=== PATIENT | female | born 1960 | race Caucasian/White ===

== ENCOUNTER → 2017-10-25 | Outpatient (CLI) | payer OTHER ==
[~2017-10-25] MED LIST: LEVSOD50 PO; PSORIASIS MED
== END | disposition home or self-care (01) ==
LOC: LAB 13:43 → LAB SHORT 13:43
PROVIDERS: Nurse Practitioner
DX: Z01.419 Encounter for gynecological examination (general) (routine) without abnormal findings (principal)
CPT/HCPCS: G0145

== ENCOUNTER 2019-08-06 07:14 | Day surgery (SDC) | payer OTHER ==
[~2019-08-06] VITALS: Ht 172.7 cm; Wt 80.1 kg
[~2019-08-06 07:14] MED LIST changes: +Colace100 MG PO; +GABA100 PO; +SUMA25 PO; +Synthroid137 MCG PO
--- NOTE | 2019-08-06 09:32 | NUR ---
08/06/19 0932 Jennifer Bennett PT DIFFICULT TO WAKE. VSS. DISCHARGE INSTRUCTIONS WERE REVIEWED WITH PT ONCE SHE WAS AWAKE AND THEN WITH HER SPOUSE WHEN HE ARRIVED TO PICK HER UP. HANDOUT FOR DIVERTICULOSIS PROVIDED PER DR. LOREDO.
== END 2019-08-06 09:15 | disposition home or self-care (01) ==
LOC: ORSCSDS 07:14
PROVIDERS: Internal Medicine Gastroenterology
PROC: 0DJD8ZZ Inspection of Lower Intestinal Tract, Via Natural or Artificial Opening Endoscopic (ICD-10-PCS; principal; 2019-08-06 08:30)
DX: Z12.11 Encounter for screening for malignant neoplasm of colon (principal); K57.30 Diverticulosis of large intestine without perforation or abscess without bleeding; K64.4 Residual hemorrhoidal skin tags; K64.8 Other hemorrhoids; E03.9 Hypothyroidism, unspecified; F17.210 Nicotine dependence, cigarettes, uncomplicated; Z79.899 Other long term (current) drug therapy
CPT/HCPCS: J2405; J2704; J7120

== ENCOUNTER → 2024-05-18 | Outpatient (CLI) | payer OTHER | LOC: LAB 13:49 → LAB SHORT 13:49 | DX: R30.0 Dysuria (principal) | CPT/HCPCS: 87086 ==